=== PATIENT | female | born 1990 | race Caucasian/White ===

== ENCOUNTER 2017-10-17 02:02 | Emergency (ER) | payer SELFPAY ==
[~2017-10-17 02:02] MED LIST: AZULFIDINE PO; FLONASE NASAL S16 GM NS; NUVARING1 ICR VG; PREDNISONE10 MG
[2017-10-17 02:35] VITALS: TEMP 98.1
[2017-10-17 05:25] VITALS: BP 105/59; PULSE 73
== END 2017-10-17 05:25 | disposition home or self-care (01) ==
LOC: COL.ER 02:02
DX: G43.909 Migraine, unspecified, not intractable, without status migrainosus (principal); F32.9 Major depressive disorder, single episode, unspecified; Z90.89 Acquired absence of other organs; Z98.890 Other specified postprocedural states; Z79.51 Long term (current) use of inhaled steroids; Z79.52 Long term (current) use of systemic steroids; Z88.6 Allergy status to analgesic agent
CPT/HCPCS: J1200; J1885; J2550; J2765; J7030

== ENCOUNTER 2018-08-14 20:29 | Emergency (ER) | payer SELFPAY ==
[~2018-08-14] VITALS: Ht 175.3 cm; Wt 102.3 kg
[2018-08-14 20:33] VITALS: BP 142/91; PULSE 98; TEMP 98.9
== END 2018-08-15 00:29 | disposition home or self-care (01) ==
LOC: COL.ER 20:29
DX: S61.211A Laceration without foreign body of left index finger without damage to nail, initial encounter (principal); Z79.51 Long term (current) use of inhaled steroids

== ENCOUNTER 2023-05-23 14:26 | Emergency (ER) | payer OTHER ==
[~2023-05-23] VITALS: Ht 172.7 cm; Wt 84.1 kg
[~2023-05-23 14:26] MED LIST changes: +CEFTIN 250250 MG/TAB PO; +EFFEXOR-XR150 MG PO; +LEADER CLE17 GM/Dose PO; +NICODERM C14 MG/PATC TD; +PREDNISOLO15 MG/5 M3 PO; +SENOKOT S 50 MG1 TAB PO
[2023-05-23 14:35] VITALS: TEMP 98.6
[2023-05-23 17:30] VITALS: BP 119/91; PULSE 103
[2023-05-23] MEDS ORDERED: PRELONE15 MG/5 ML PO (17:40)
== END 2023-05-23 17:50 | disposition home or self-care (01) ==
LOC: COL.ER 14:26
DX: K74.60 Unspecified cirrhosis of liver (principal); F17.200 Nicotine dependence, unspecified, uncomplicated
CPT/HCPCS: J7510